=== PATIENT | female | born 1955 | race Caucasian/White ===

== ENCOUNTER 2017-01-08 09:47 | Outpatient (CLI) ==
[2017-01-08 10:30] LABS: FLU INTERNAL QC INTERNAL QC VALID; RAPID FLU A NEGATIVE (NEGATIVE); RAPID FLU B NEGATIVE (NEGATIVE)
== END 2017-01-08 09:48 | disposition home or self-care (01) ==
LOC: LAB 09:47
PROVIDERS: ATTEND Family Medicine
DX: R50.9 Fever, unspecified (principal)
CPT/HCPCS: 87651; 87804; 87880